=== PATIENT | male | born 1955 | race Caucasian/White ===

== ENCOUNTER 2022-09-20 15:48 | Emergency (ER) | payer MEDICARE, OTHER ==
[~2022-09-20] VITALS: Ht 190.5 cm; Wt 81.6 kg
[2022-09-20 15:55] VITALS: BP 143/93; PULSE 98; RESP 20; TEMP 98.3; O2SAT 98
--- NOTE | 2022-09-20 16:19 | NUR ---
family requested that we keep pt until they arrive from [place]. Hank Craven is on his way. telephone number [phone] Addendum: 09/20/22 at 1659 by [facility] GLADYS - DAUGHTER [phone]
[2022-09-20 16:25] VITALS: O2SAT 98
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
[2022-09-20 18:49] VITALS: O2SAT 98
[2022-09-20 18:55] LABS: BASOPHILS # (AUTO) 0.1 K/uL (0.00-0.22); BASOPHILS % (AUTO) 1.2 % (0.0-2.0); EOSINOPHILS # (AUTO) 0.1 K/uL (0-0.4); EOSINOPHILS % (AUTO) 1.3 % (0.0-4.0); HEMATOCRIT 46.9 % (36-52); HEMOGLOBIN 15.9 g/dL (12.0-18.0); LYMPHOCYTES # (AUTO) 1.1 K/uL (2.0-11.5); LYMPHOCYTES % (AUTO) 15.9 % (20.5-51.1); MEAN CORPUSCULAR HEMOGLOBIN 31 pg (27-31); MEAN CORPUSCULAR HGB CONC 34 g/dL (33-37); MEAN CORPUSCULAR VOLUME 90.6 fL (80-94); MONOCYTES # (AUTO) 0.6 K/uL (0.8-1.0); MONOCYTES % (AUTO) 8.1 % (1.7-9.3); NEUTROPHILS % (AUTO) 73.5 % (42.2-75.2); PLATELET COUNT (AUTO) 192 K/uL (140-450); RED BLOOD CELL COUNT(AUTO) 5.18 MIL/uL (4.20-6.10); RED CELL DISTRIBUTION WIDTH 13.5 % (11.6-13.7); WHITE BLOOD COUNT (AUTO) 6.8 K/uL (4.8-10.8)
[2022-09-20 19:04] LABS: ANION GAP 12.8 (8-16); CARBON DIOXIDE 29.6 mmol/L (21-32); CREATININE 1.1 mg/dL (0.6-1.3); POTASSIUM 4.4 mmol/L (3.5-5.1)
--- NOTE | 2022-09-20 19:04 | NUR ---
pt taken to ct/xray via carolyn
--- NOTE | 2022-09-20 19:15 | NUR ---
pt brought back via carolyn
--- NOTE | 2022-09-20 19:23 | NUR ---
REPORT GIVEN TO ALEXANDRO SÁNCHEZ. TRANSFER OF CARE AT THIS TIME
--- NOTE | 2022-09-20 19:30 | NUR ---
Patient received on bed lying comfortably and awake. Alert and oriented x4. No acute distress. No complaints of pain or discomfort. Respirations even and unlabored.
--- NOTE | 2022-09-20 21:05 | NUR ---
Dr. Langston examining patient.
[2022-09-20 21:15] VITALS: BP 137/86; PULSE 88; RESP 19; TEMP 97.8; O2SAT 97
--- NOTE | 2022-09-20 21:15 | NUR ---
Patient discharged with v/s stable. Written and verbal after care instructions given and explained. Patient verbalized understanding. Ambulatory with steady gait. All questions addressed prior to discharge. Advised to follow up with PMD.
== END 2022-09-20 21:15 | disposition home or self-care (01) ==
LOC: MED 15:48
DX: R41.3 Other amnesia (principal); F03.90 Unspecified dementia, unspecified severity, without behavioral disturbance, psychotic disturbance, mood disturbance, and anxiety; V49.9XXA Car occupant (driver) (passenger) injured in unspecified traffic accident, initial encounter; Y93.89 Activity, other specified; Y92.89 Other specified places as the place of occurrence of the external cause; Y99.8 Other external cause status
CPT/HCPCS: 36415; 70450; 71045; 72125; 80048; 84484; 85025; 93005; 99285